=== PATIENT | male | born 1945 | race Caucasian/White ===

== ENCOUNTER → 2021-03-19 09:18 | Outpatient (CLI) | payer MEDICARE, OTHER, SELFPAY ==
--- NOTE | 2021-03-19 09:21 | DI.RAD.S_ITS ---
PROCEDURE: XR LUMBAR SPINE MIN 4V INDICATIONS: lumbar radicu TECHNIQUE: 5 views of the lumbar spine were acquired, including bilateral oblique views. COMPARISON: None. FINDINGS: Bones: 5 nonrib-bearing vertebrae are present. There is mild levoscoliosis; otherwise normal bony alignment. No vertebral body compression fractures. No suspicious bony lesions. There is degenerative disc disease in lower thoracic spine and lumbar spine, moderate at T10-T11, T12-L1, L1-L2 and L2-L3, mild at other levels. Moderate facet arthropathy at L4-L5 and L5-S1. Soft tissues: Overlying bowel gas pattern is normal. No suspicious soft tissue calcifications. Large amount of stool in colon. Surgical clips in the right groin. Oblique images: No pars defects. IMPRESSION: 1. Degenerative disc and facet disease in lumbar spine. 2. Mild levoscoliosis. Dictated by: Osmin Avila M.D. on 03/19/2021 at 11:48 Approved by: Osmin Avila M.D. on 03/19/2021 at 11:50
== END ==
PROVIDERS: PCP Family Medicine; Referring Provider Physical Medicine & Rehabilitation; Visit Provider Physical Medicine & Rehabilitation
DX: M51.15 Intervertebral disc disorders with radiculopathy, thoracolumbar region (principal); M51.16 Intervertebral disc disorders with radiculopathy, lumbar region; M47.26 Other spondylosis with radiculopathy, lumbar region; M47.27 Other spondylosis with radiculopathy, lumbosacral region; M41.86 Other forms of scoliosis, lumbar region
CPT/HCPCS: 72110

== ENCOUNTER → 2021-04-09 06:52 | Outpatient (CLI) | payer MEDICARE, OTHER, SELFPAY ==
--- NOTE | 2021-04-09 06:55 | DI.MRI.S_ITS ---
PROCEDURE: MR LUMBAR SPINE WO CON INDICATIONS: lumbar radiculopathy TECHNIQUE: Noncontrast sagittal T1 spin echo and T2 fast echo, sagittal STIR, axial T1 and T2 fast spin echo through the lumbar spine. In cases with scoliosis, additional coronal T2 fast spin echo may be performed. COMPARISON: [facility], CR, XR LUMBAR SPINE MIN 4V, 03/19/2021, 9:27. FINDINGS: Image quality: Excellent. Alignment and Curvature: There is trace L2-L3 and L3-L4 retrolisthesis. Mild convex left curvature of the lumbar spine. Bone Marrow: Reactive endplate changes noted adjacent to the L1-L2, L2-L3, L3-L4, L4-L5 and L5-S1 discs.. No acute vertebral body compression fractures. Spinal Cord: Conus medullaris terminates at the L1 level. Visualized cord demonstrates normal signal and size. Paraspinous Soft Tissues: No paravertebral masses. T12-L1: Loss of disc signal and height. Mild, diffuse disc bulge. Mild narrowing of the central canal. No neural foraminal narrowing. No neural compression. L1-L2: Loss of disc signal and height. Mild, diffuse disc bulge. Mild narrowing of the central canal. Mild bilateral neural foraminal narrowing. No neural compression. L2-L3: Loss of disc signal and height. Moderate, diffuse disc bulge. Mild bilateral facet hypertrophy. Moderate ligamentum flavum hypertrophy. Moderate narrowing of the central canal. Moderate bilateral neural foraminal narrowing. No neural compression. L3-L4: Loss of disc signal and slight loss of disc height. Moderate, diffuse disc bulge. Mild bilateral facet hypertrophy. Mild ligamentum flavum hypertrophy. Mild to moderate narrowing of the central canal. Moderate bilateral neural foraminal narrowing. No neural compression. L4-L5: Loss of disc signal. Moderate, diffuse disc bulge. Mild bilateral facet hypertrophy. Mild to moderate narrowing of the central canal. Moderate bilateral neural foraminal narrowing. No neural compression. L5-S1: Loss of disc signal. Mild, diffuse disc bulge. Mild right and moderate left facet hypertrophy. No central stenosis. Mild right and severe left neural foraminal narrowing with compression of the exiting left L5 nerve root. IMPRESSION: 1. Multilevel degenerative disc disease. 2. Multilevel facet arthropathy. 3. No severe central canal narrowing. 4. Severe left L5-S1 neural foraminal narrowing with compression of the exiting left L5 nerve root. Dictated by: Jenae Castle MD, PhD on 04/09/2021 at 16:28 Approved by: Jenae Castle MD, PhD on 04/09/2021 at 16:46
== END ==
PROVIDERS: PCP Family Medicine; Referring Provider Physical Medicine & Rehabilitation; Visit Provider Physical Medicine & Rehabilitation
DX: M51.16 Intervertebral disc disorders with radiculopathy, lumbar region (principal); M51.17 Intervertebral disc disorders with radiculopathy, lumbosacral region; M47.26 Other spondylosis with radiculopathy, lumbar region; M47.27 Other spondylosis with radiculopathy, lumbosacral region; M48.07 Spinal stenosis, lumbosacral region
CPT/HCPCS: 72148

== ENCOUNTER → 2021-05-04 08:08 | Outpatient (CLI) | payer MEDICARE, OTHER, SELFPAY ==
[2021-05-04 12:45] LABS: COVID19 -Nasal RAPID Negative (Negative)
== END ==
PROVIDERS: PCP Family Medicine; Visit Provider Physical Medicine & Rehabilitation
DX: Z20.822 Contact with and (suspected) exposure to COVID-19 (principal)
CPT/HCPCS: 87635; C9803

== ENCOUNTER 2021-05-05 14:56 | Outpatient (CLI) | payer MEDICARE, OTHER, SELFPAY ==
[2021-05-05] VITALS (8 sets, daily range): BP systolic 130–179; BP diastolic 70–83; PULSE 60–73; RESP 17–22; TEMP 36.8; O2SAT 92–98
--- NOTE | 2021-05-05 14:59 | DI.RAD.S_ITS ---
PROCEDURE: PAIN L/S TRANSFORAMINAL INJECT INDICATIONS: SPONDYLOSIS COMPARISON: None. FINDINGS: Fluoroscopic spot filming was performed to verify placement of spinal needles at the left L5-S1 neural foramen level(s), as labeled on the films. Appropriate location(s) of the needle tip(s) was confirmed by injection of iodinated contrast. IMPRESSION: Access needle at the left L5-S1 neural foramen Dictated by: Jenae Castle MD, PhD on 05/05/2021 at 17:11 Approved by: Jenae Castle MD, PhD on 05/05/2021 at 17:12
[2021-05-05] MEDS: MIDAZOLAM 5 MG/5 ML VIAL IV (15:35)
[2021-05-05] MEDS: fentaNYL 100 MCG/2 ML INJ 50 MCG IV (15:35)
[2021-05-05] MEDS: BUPIVACAINE 0.25% (PF) VIAL 2 ML INJ (15:39)
[2021-05-05] MEDS: BETAMETHASONE 30 MG/5 ML MDV 6 MG INJ (15:39)
[2021-05-05] MEDS: IOPAMIDOL 15 ML VIAL 3 ML INJ (15:39)
[2021-05-05] MEDS: DEXAMETHASONE 10 MG/ML VIAL 20 MG INJ (15:40)
--- NOTE | 2021-05-05 15:53 | P.PCN_ITS ---
Date/Time/Diagnoses Date of procedure: 05/05/21 Time of procedure: 15:53 Pre-procedure diagnosis: 1. FORAMINAL STENOSIS WITH LE SYMPTOMS Post-procedure diagnosis: same Procedure Notes Procedure: 1. FLUOROSCOPICALLY GUIDED CONTRAST CONTROLLED TRANSFORAMINAL EPIDURAL STEROID INJECTION - Left L5/S1 Indications: Alex is referred by Dr. Conklin for treatment of Foraminal Stenosis with Left LE Symptoms Physician: Vicente Keller Total Fluoroscopy time (seconds): 13 Total sedation minutes: 14 Complications: none Procedure in detail & Post-procedure care: FINDINGS Foraminal Nerve Root Compression secondary to disc disease and facet hypertrophy DESCRIPTION OF PROCEDURE Following review of allergy and review of potential side effects and complications, including, but not necessarily limited to, infection, allergic reaction, local tissue breakdown, stroke, temporary or permanent nerve injury, paralysis, and possible , the patient indicated that the patient understood and agreed to proceed. An informed consent document was signed by the patient, witnessed by a nurse, and placed in the patient's chart. Additionally, other treatment options including medications, modalities, and physical therapy were reviewed with the patient. After review of previous anaesthesic history and IV conscious sedation the patient was deemed safe to proceed with today?s procedure with IV conscious sedation as ASA class II designation. Safety time-out was performed to confirm patient ID, procedure to be performed and site of procedure. IV sedation was accomplished with a combination of 2mg of Versed and 50mcg of Fentanyl was administered by the RN after DO order, titrated to patient comfort during the course of the procedure while the patient remained responsive to all verbal commands In the prone position following sterile prep and drape of the lumbar region, the Left L5/S1 posterior neuroforamen was identified fluoroscopically. The skin was anesthetized via a 25-gauge 1.5-inch needle with 1% lidocaine solution. At this point, a 25-gauge 3.5-inch spinal needle was atraumatically introduced and advanced under fluoroscopic guidance through the posterior Left L5/S1 neurofor amen to approximately the anterior aspect of the canal. Depth was confirmed on lateral view. Following negative aspiration, injection of approximately 1.5 cc of Isovue 200 under live fluoroscopy in the AP view confirmed excellent flow along the nerve root, into the epidural space without vascular or intrathecal uptake observed Radiological data, including multiple fluoroscopic views of the lumbosacral spine, reveal a spinal needle at the Left L5/S1 posterior neuroforamen. Subsequent views show flow of contrast material flowing superiorly and inferiorly along the nerve root confirming epidural flow. Subsequently, a test dose of 1.5 cc of 1% lidocaine solution was administered and patient was observed for two minutes for signs or symptoms of complications, including abdominal pain, shortness of breath, bilateral upper or lower extremity weakness, nausea and vomiting, prior to steroid injection. At this point, a total of 3cc or 20mg of dexamethasone and 6mg of betamethasone was injected without incident. The procedure tolerated the procedure well without signs or symptoms of complications prior to transfer to the recovery area continued monitoring without incident. The patient was then transferred to the recovery area where they were observed for an appropriate time after the injection. The patient reported a VAS score of 7 prior to the procedure and a post-procedure VAS of 0. POST OP INSTRUCTIONS The patient was provided a Pain Log to continue to record their response to the target-specific procedure prior to follow-up visit with their referring physician. Additionally, specific post-injection care instructions and a contact number to our office were provided if concerns arise regarding possible complications associated with the procedure are suspected.
== END 2021-05-05 16:14 | disposition home or self-care (01) ==
LOC: RAD 14:59
PROVIDERS: PCP Family Medicine; Referring Provider Physical Medicine & Rehabilitation; Visit Provider Physical Medicine & Rehabilitation
DX: M48.07 Spinal stenosis, lumbosacral region (principal); M51.17 Intervertebral disc disorders with radiculopathy, lumbosacral region
CPT/HCPCS: 64483; 99152; J0702; J1100; J2250; J3010

== ENCOUNTER → 2021-06-08 08:30 | Outpatient (CLI) | payer MEDICARE, OTHER, SELFPAY ==
[2021-06-08 12:27] LABS: COVID19 -Nasal RAPID Negative (Negative)
== END ==
PROVIDERS: PCP Family Medicine; Referring Provider Physical Medicine & Rehabilitation; Visit Provider Physical Medicine & Rehabilitation
DX: Z20.822 Contact with and (suspected) exposure to COVID-19 (principal)
CPT/HCPCS: 87635; C9803

== ENCOUNTER 2021-06-09 13:04 | Outpatient (CLI) | payer MEDICARE, OTHER, SELFPAY ==
[2021-06-09] VITALS (9 sets, daily range): BP systolic 151–174; BP diastolic 73–85; PULSE 64–69; RESP 17–23; TEMP 36.8; O2SAT 94–99
--- NOTE | 2021-06-09 13:07 | DI.RAD.S_ITS ---
PROCEDURE: PAIN L/S TRANSFORAMINAL INJECT INDICATIONS: SPONDYLOSIS COMPARISON: [facility], , PAIN L/S TRANSFORAMINAL INJECT, 05/05/2021, 15:40. FINDINGS: Fluoroscopic spot filming was performed to verify placement of spinal needles at the left L3-L4 neural foramen level(s), as labeled on the films. Appropriate location(s) of the needle tip(s) was confirmed by injection of iodinated contrast. IMPRESSION: Access needle at the left L3-L4 neural foramen. Dictated by: Jenae Castle MD, PhD on 06/09/2021 at 15:47 Approved by: Jenae Castle MD, PhD on 06/09/2021 at 15:48
[2021-06-09] MEDS: MIDAZOLAM 5 MG/5 ML VIAL IV (14:24)
[2021-06-09] MEDS: IOPAMIDOL 15 ML VIAL 3 ML INJ (14:29)
[2021-06-09] MEDS: BETAMETHASONE 30 MG/5 ML MDV 6 MG INJ (14:29)
[2021-06-09] MEDS: DEXAMETHASONE 10 MG/ML VIAL 20 MG INJ (14:30)
--- NOTE | 2021-06-09 14:39 | PM.PROC.IR.1 ---
Date/Time/Diagnoses Date of procedure: 06/09/21 Time of procedure: 14:39 Pre-procedure diagnosis: 1. FORAMINAL STENOSIS WITH LE SYMPTOMS Post-procedure diagnosis: same Procedure Notes Procedure: 1. FLUOROSCOPICALLY GUIDED CONTRAST CONTROLLED TRANSFORAMINAL EPIDURAL STEROID INJECTION - LEFT L3/4 TFESI Indications: Alex is referred by Dr. Conklin for treatment of Foraminal Stenosis with left LE Symptoms Physician: Vicente Keller Total Fluoroscopy time (seconds): 7 Total sedation minutes: 12 Complications: none Procedure in detail & Post-procedure care: FINDINGS Foraminal Nerve Root Compression secondary to disc disease and facet hypertrophy DESCRIPTION OF PROCEDURE Following review of allergy and review of potential side effects and complications, including, but not necessarily limited to, infection, allergic reaction, local tissue breakdown, stroke, temporary or permanent nerve injury, paralysis, and possible , the patient indicated that the patient understood and agreed to proceed. An informed consent document was signed by the patient, witnessed by a nurse, and placed in the patient's chart. Additionally, other treatment options including medications, modalities, and physical therapy were reviewed with the patient. After review of previous anaesthesic history and IV conscious sedation the patient was deemed safe to proceed with today?s procedure with IV conscious sedation as ASA class II designation. Safety time-out was performed to confirm patient ID, procedure to be performed and site of procedure. IV sedation was accomplished with a combination of 2mg of Versed was administered by the RN after DO order, titrated to patient comfort during the course of the procedure while the patient remained responsive to all verbal commands In the prone position following sterile prep and drape of the lumbar region, the left L3/4 posterior neuroforamen was identified fluoroscopically. The skin was anesthetized via a 25-gauge 1.5-inch needle with 1% lidocaine solution. At this point, a 25-gauge 3.5-inch spinal needle was atraumatically introduced and advanced under fluoroscopic guidance through the posterior left L3/4 neuroforamen to approximately the anterior aspect of the canal. Depth was confirmed on lateral view. Following negative aspiration, injection of approximately 1.5 cc of Isovue 200 under live fluoroscopy in the AP view confirmed excellent flow along the nerve root, into the epidural space without vascular or intrathecal uptake observed Radiological data, including multiple fluoroscopic views of the lumbosacral spine, reveal a spinal needle at the left L3/4 posterior neuroforamen. Subsequent views show flow of contrast material flowing superiorly and inferiorly along the nerve root confirming epidural flow. Subsequently, a test dose of 1.5cc of 1% lidocaine solution was administered and patient was observed for two minutes for signs or symptoms of complications, including abdominal pain, shortness of breath, bilateral upper or lower extremity weakness, nausea and vomiting, prior to steroid injection. At this point, a total of 3cc or 20mg of dexamethasone and 6mg betamethasone was injected without incident. The patient tolerated the procedure well without signs or symptoms of complications prior to transfer to the recovery area continued monitoring without incident. The patient was then transferred to the recovery area where they were observed for an appropriate time after the injection. The patient reported a VAS score of 7 prior to the procedure and a post-procedure VAS of 0. POST OP INSTRUCTIONS The patient was provided a Pain Log to continue to record their response to the target-specific procedure prior to follow-up visit with their referring physician. Additionally, specific post-injection care instructions and a contact number to our office were provided if concerns arise regarding possible complications associated with the procedure are suspected.
== END 2021-06-09 15:02 | disposition home or self-care (01) ==
LOC: RAD 13:06
PROVIDERS: PCP Family Medicine; Referring Provider Physical Medicine & Rehabilitation; Visit Provider Physical Medicine & Rehabilitation
DX: M48.061 Spinal stenosis, lumbar region without neurogenic claudication (principal); M51.16 Intervertebral disc disorders with radiculopathy, lumbar region
CPT/HCPCS: 64483; 99152; J0702; J1100; J2250; J3010

== ENCOUNTER → 2021-12-23 13:59 | Outpatient (CLI) | payer MEDICARE, OTHER, SELFPAY ==
--- NOTE | 2021-12-23 14:02 | DI.RAD.S_ITS ---
PROCEDURE: XR SHOULDER RT MIN 2V INDICATIONS: shoulder djd TECHNIQUE: 3 views of the shoulder were acquired. COMPARISON: [facility], CR, XR SHOULDER LT MIN 2V, 12/23/2021, 13:54. FINDINGS: Bones: No fractures or dislocations. There is moderate acromioclavicular joint degeneration including inferior osteophytosis. Mild glenohumeral joint degeneration also present. No suspicious bony lesions. Visualized ribs appear intact. Soft tissues: No suspicious soft tissue calcifications. IMPRESSION: 1. Moderate acromioclavicular and mild glenohumeral joint degeneration. Dictated by: Yehuda Brasher M.D. on 12/23/2021 at 15:37 Approved by: Yehuda Brasher M.D. on 12/23/2021 at 15:38
--- NOTE | 2021-12-23 14:02 | DI.RAD.S_ITS ---
PROCEDURE: XR SHOULDER LT MIN 2V INDICATIONS: shoulder djd TECHNIQUE: 3 views of the shoulder were acquired. COMPARISON: None. FINDINGS: Bones: No fractures or dislocations. There is mild acromioclavicular and glenohumeral joint degeneration. No suspicious bony lesions. Visualized ribs appear intact. Soft tissues: No suspicious soft tissue calcifications. IMPRESSION: 1. Mild acromioclavicular and glenohumeral joint degeneration. Dictated by: Yehuda Brasher M.D. on 12/23/2021 at 15:36 Approved by: Yehuda Brasher M.D. on 12/23/2021 at 15:37
== END ==
PROVIDERS: PCP Family Medicine; Referring Provider Physical Medicine & Rehabilitation; Visit Provider Physical Medicine & Rehabilitation
DX: M75.40 Impingement syndrome of unspecified shoulder (principal); M19.012 Primary osteoarthritis, left shoulder; M19.011 Primary osteoarthritis, right shoulder; M47.816 Spondylosis without myelopathy or radiculopathy, lumbar region; M75.41 Impingement syndrome of right shoulder; M41.26 Other idiopathic scoliosis, lumbar region; M54.16 Radiculopathy, lumbar region; Z68.24 Body mass index [BMI] 24.0-24.9, adult
CPT/HCPCS: 73030; 99214

== ENCOUNTER → 2022-04-05 09:17 | Outpatient (CLI) | payer MEDICARE, OTHER, SELFPAY ==
[2022-04-05 12:40] LABS: COVID19 -Nasal RAPID Negative (Negative)
== END ==
PROVIDERS: PCP Family Medicine; Visit Provider Surgery
DX: Z20.822 Contact with and (suspected) exposure to COVID-19 (principal); Z01.812 Encounter for preprocedural laboratory examination
CPT/HCPCS: 87635; C9803

== ENCOUNTER 2022-04-06 08:28 | Day surgery (SDC) | payer MEDICARE, OTHER, SELFPAY ==
[2022-01-21 14:25] VITALS: BMI 25.0
[2022-04-06] VITALS (11 sets, daily range): BP systolic 112–157; BP diastolic 40–82; PULSE 62–78; RESP 11–16; TEMP 36.1–36.4; O2SAT 86–98; BMI 25.0
[2022-04-06] MEDS: LACTATED RINGERS 1,000 ML 84 ML IV ×2 (09:21→11:27)
--- NOTE | 2022-04-06 09:31 | PM.HP.1 ---
History of Present Illness History of Present Illness Date Patient Seen: 04/06/22 Time Patient Seen: 09:32 Chief complaint: LAP RIH REPAIR W/MESH Narrative: Alex is here for his recurrent right inguinal hernia repair. See the office note from December for details. Patient History Medical History Depression Facet arthropathy, lumbar Hernia Lumbar radiculopathy Sciatic nerve disease Scoliosis Shoulder impingement syndrome Trigger finger Surgical History History of carpal tunnel surgery History of surgery on arm History of testicular surgery Family & Social History Family History Brother Diabetes mellitus Heart disease Social History: household members spouse lives independently Yes Tobacco & Substance use: Smoking Status Former smoker alcohol intake current alcohol intake frequency a few times a month Substance Use Type does not use Meds Home Medications and Allergies Home Medications Medication Instructions Recorded Confirmed Type atorvastatin 40 mg tablet 40 mg PO DAILY 04/06/21 04/06/22 History escitalopram oxalate 10 mg tablet 10 mg PO DAILY 04/06/21 04/06/22 History (Lexapro) lamotrigine 100 mg tablet 100 mg PO DAILY 04/06/21 04/06/22 History tamsulosin 0.4 mg capsule 0.4 mg PO BEDTIME 04/06/21 04/06/22 History omeprazole magnesium 20 mg 20 mg PO DAILY 12/09/21 04/06/22 History tablet,delayed release (Prilosec OTC) finasteride 5 mg tablet 5 mg PO DAILY 12/23/21 04/06/22 History Allergies Allergy/AdvReac Type Severity Reaction Status Date / Time No Known Drug Allergies Allergy Verified 04/06/22 08:36 Exam Vital Signs (past 8 hours): - 04/06/22 08:50 Temperature 97 F L Pulse Rate 62 Respiratory Rate 16 Blood Pressure 157/82 H Pulse Oximetry 98 Oxygen Delivery Method Room Air Oxygen Delivery Method Room Air Narrative Exam Narrative: Reducible right inguinal hernia Reducible small umbilical hernia Assessment & Plan Assessment and plan (1) Recurrent right inguinal hernia: Status: Acute Plan 68-year-old man with a recurrent right inguinal hernia. We will proceed with a laparoscopic right inguinal hernia repair with mesh. He also has a umbilical hernia that we will close the conclusion of the case. Time Spent With Patient Critical Care time: I spent a total of [] minutes of critical care time on this patient's care today; this time is exclusive of procedural time.
[2022-04-06] MEDS: CEFAZOLIN 2 GM/20 ML SYRINGE IV (10:08)
--- NOTE | 2022-04-06 10:20 | SUR.OPER ---
Supine on padded OR bed, head on pillow, on pink pad positioner, arms padded and tucked at sides, legs uncrossed, safety belt at thigh, tape over blanket over lower legs . Gel pad under bilateral heels. Patient voided in pre-op bathroom prior to entering OR around 0955. patients glasses placed in black glass case with patient ID label and bilateral hearing aids placed in patient ID labeled cup and both placed in patients belongings bag.
[2022-04-06] MEDS: LIDOCAINE 1% W/EPI 20 ML INJ (10:38)
[2022-04-06] MEDS: BUPIVACAINE 0.5% (PF) VIAL 20 ML INJ (10:39)
--- NOTE | 2022-04-06 11:42 | PM.OP.1 ---
Operative Date/Time/Diagnoses Date of procedure: 04/06/22 Time of procedure: 11:43 Pre-op diagnosis: Recurrent right inguinal hernia Post-op diagnosis: same Procedure & Clinicians Procedure: Laparoscopic right inguinal hernia repair with mesh Same procedure as scheduled: Yes Surgeon: Alok Kulkarni Operative Notes Findings: Indirect defect Procedure in detail: The patient was given preoperative antibiotics. The patient was brought to the operating room, placed on the table in the supine position with the arms tucked and general anesthesia was induced. The abdomen was prepped and draped in the usual fashion. A time-out was performed. A 1 cm curvilinear infraumbilical incision was created and dissection was carried down to the base of the umbilical stalk. The hernia sac was dissected from the umbilical skin and dissected down to the fascial ring. The fascial defect was about 1.5 cm. The peritoneal sac was opened sharply with Metzenbaum scissors. The Ananda port was placed and the abdomen was insufflated to 15 mmHg. The camera was inserted, there was no evidence of any injury from the entry. There was a right indirect inguinal hernia. 5 mm ports were placed under direct vision in the mid left and mid right abdomen. The patient was positioned in steep Trendelenburg. We created right peritoneal flap. The peritoneum was dissected off of the cord structures. A a large right Bard mesh was brought in and placed over the defect with the medial edge against Pelon's ligament. We then closed the peritoneal flap with a running 3-0 barbed suture. We took one last look around the abdomen and saw no other abnormalities. The suture was removed and accounted for. The 5 mm ports were removed under direct vision. The abdomen was desufflated. The Ananda port was removed. Additional local was injected into the fascia and the infraumbilical fascial incision was closed with 2 interrupted 0 Vicryl sutures. The skin incisions were closed with 4 Monocryl, Steri-Strips and Band-Aids. Post-operative Condition: stable Disposition: PACU
[2022-04-06] MEDS: OXYCODONE/ACETAMINOPHEN 5/325 TABLET 1 TAB PO (12:01)
--- NOTE | 2022-04-06 12:52 | SUR.PHASEII ---
Pt transferred to [facility] with SBAR report at bedside. . Pt on room air trail, placed on continuous pulse ox in OPD. Denies SOB or difficulty breathing though reports fatigue at home.
== END 2022-04-06 13:10 | disposition home or self-care (01) ==
PROVIDERS: PCP Family Medicine; Referring Provider Surgery; Visit Provider Surgery
PROC: 0YQ54ZZ Repair Right Inguinal Region, Percutaneous Endoscopic Approach (ICD-10-PCS; CPT 49650; principal; 2022-04-06 09:45)
DX: K40.91 Unilateral inguinal hernia, without obstruction or gangrene, recurrent (principal); G47.33 Obstructive sleep apnea (adult) (pediatric); E78.5 Hyperlipidemia, unspecified; F32.A Depression, unspecified
CPT/HCPCS: 49650; J0690; J1100; J1885; J2250; J2405; J2704; J3010

== ENCOUNTER → 2022-06-15 10:50 | Outpatient (CLI) | payer MEDICARE, OTHER, SELFPAY ==
[2022-06-15 12:26] LABS: COVID19 -Nasal RAPID Negative (Negative)
== END ==
PROVIDERS: PCP Family Medicine; Visit Provider Physical Medicine & Rehabilitation
DX: Z20.822 Contact with and (suspected) exposure to COVID-19 (principal)
CPT/HCPCS: 87635; C9803

== ENCOUNTER 2022-06-17 07:38 | Outpatient (CLI) | payer MEDICARE, OTHER, SELFPAY ==
[2022-06-17] VITALS (9 sets, daily range): BP systolic 140–188; BP diastolic 71–110; PULSE 58–67; RESP 12–23; TEMP 36.3; O2SAT 95–99
--- NOTE | 2022-06-17 07:40 | DI.RAD.S_ITS ---
PROCEDURE: PAIN L/S FACET INJ/BLK 1ST ANDREW COMPARISON: None. INDICATIONS: SPONDYLOSIS FINDINGS: Fluoroscopic images demonstrating needle placement overlying left L4-5 and L5-S1 with contrast injection. No visualized osseous fracture. IMPRESSION: Needle placement as above. Dictated by: Lula Mccollum M.D. on 06/17/2022 at 16:13 Approved by: Lula Mccollum M.D. on 06/17/2022 at 16:13
[2022-06-17] MEDS: MIDAZOLAM 2 MG/2 ML VIAL IV (09:23)
[2022-06-17] MEDS: IOPAMIDOL 15 ML VIAL 3 ML INJ (09:27)
[2022-06-17] MEDS: BETAMETHASONE 30 MG/5 ML MDV 12 MG INJ (09:27)
[2022-06-17] MEDS: BUPIVACAINE 0.5% (PF) VIAL 5 ML INJ (09:27)
[2022-06-17] MEDS: LIDOCAINE 1% 20 ML INJ (09:28)
--- NOTE | 2022-06-17 09:41 | P.PCN_ITS ---
Date/Time/Diagnoses Date of procedure: 06/17/22 Time of procedure: 09:41 Pre-procedure diagnosis: 1. FACET ARTHROPATHY 2. AXIAL LBP 3. MULTILEVEL DDD Post-procedure diagnosis: same Procedure Notes Procedure: 1. FLUOROSCOPICALLY GUIDED CONTRAST CONTROLLED FACET JOINT INJECTIONS BILATERAL L4/5, L5/S1 Indications: Alex is referred by Dr. Conklin for treatment of Axial LBP Physician: Vicente Keller Total Fluoroscopy time (seconds): 10 Total sedation minutes: 11 Complications: none Procedure in detail & Post-procedure care: FINDINGS Multilevel Facet Arthropathy with Clinically significant axial LBP DESCRIPTION OF PROCEDURE Fluoroscopically guided, contrast-controlled bilateral L4/5, L5/S1 facet joint injections. Following review of allergy and review of potential side effects and complications, including, but not necessarily limited to, infection, allergic reaction, local tissue breakdown, stroke, temporary or permanent nerve injury, paralysis, and possible , the patient indicated that the patient understood and agreed to proceed. An informed consent document was signed by the patient, witnessed by a nurse, and placed in the patient's chart. Additionally, other treatment options including medications, modalities, and physical therapy were reviewed with the patient. After review of previous anaesthesic history and IV conscious sedation the patient was deemed safe to proceed with today?s procedure with IV conscious sedation as ASA class II designation. Safety time-out was performed to confirm patient ID, procedure to be performed and site of procedure. IV sedation was accomplished with a combination of 2mg of Versed was administered by the RN after DO order, titrated to patient comfort during the course of the procedure while the patient remained responsive to all verbal commands In the prone position, following sterile prep and drape of the lumbar region, the posterior aspect of the L4/5, L5/S1 facet joints were identified fluoroscopically. The skin was anesthetized via a 25-gauge 1.5inch needle with 1% lidocaine solution into the corresponding facet joints. At this point, a 22- gauge 3.5-inch spinal needle was atraumatically introduced and advanced under fluoroscopic guidance into the corresponding facet joints. Following negative aspiration, injections of approximately 0.2cc of Isovue 200 confirmed interarticular placement without vascular uptake. The identical procedure was then performed at the L4/5, L5/S1 facet joints on the left. Radiological data, including multiple fluoroscopic views of the lumbosacral spine, reveal a spinal needle at the L4/5, L5/S1 facet joints bilaterally. Subsequent views show flow of contrast material both superiorly and inferiorly within the joint space without vascular or intrathecal uptake. At this point, a total of 0.5cc including a mixture of 0.25cc Marcaine and 0.25cc betamethasone was injected without complication into each of the corresponding facet joints. The patient tolerated the procedure well without signs or symptoms of complications prior to transfer to the recovery area continued monitoring without incident. The patient was then transferred to the recovery area where they were observed for an appropriate period of time after the injection. The patient reported a VAS score of 7 prior to the procedure and a post- procedure VAS of 0. POST OP INSTRUCTIONS The patient was provided a Pain Log to continue to record their response to the target-specific procedure prior to follow-up visit with their referring physician. Additionally, specific post-injection care instructions and a contact number to our office were provided if concerns arise regarding possible complications associated with the procedure are suspected.
== END 2022-06-17 10:05 | disposition home or self-care (01) ==
LOC: RAD 07:39
PROVIDERS: PCP Family Medicine; Referring Provider Physical Medicine & Rehabilitation; Visit Provider Physical Medicine & Rehabilitation
DX: M47.816 Spondylosis without myelopathy or radiculopathy, lumbar region (principal); M41.9 Scoliosis, unspecified
CPT/HCPCS: 64493; 64494; 99152; J0702; J2250

== ENCOUNTER 2022-09-30 07:58 | Outpatient (CLI) | payer MEDICARE, OTHER, SELFPAY ==
[2022-09-30] VITALS (9 sets, daily range): BP systolic 120–183; BP diastolic 68–89; PULSE 61–69; RESP 12–21; TEMP 36.6; O2SAT 92–98
--- NOTE | 2022-09-30 07:59 | DI.RAD.S_ITS ---
PROCEDURE: PAIN L/S FACET INJ/BLK 1ST ANDREW COMPARISON: MR, MR LUMBAR SPINE WO CON, 04/09/2021, 7:29. CR, XR LUMBAR SPINE MIN 4V, 03/19/2021, 9:27. INDICATIONS: SPONDYLOSIS FINDINGS: 6 intraoperative fluoroscopy images demonstrate needle placement at L4, L5 and S1 bilaterally. IMPRESSION: Fluoroscopy for pain management. Dictated by: Osmin Avila M.D. on 09/30/2022 at 10:30 Approved by: Osmin Avila M.D. on 09/30/2022 at 10:31
[2022-09-30] MEDS: LIDOCAINE 1% (PF) 5 ML INJ (09:42)
[2022-09-30] MEDS: IOPAMIDOL 15 ML VIAL 3 ML INJ (09:42)
[2022-09-30] MEDS: BUPIVACAINE 0.5% (PF) VIAL 5 ML INJ (09:43)
[2022-09-30] MEDS: MIDAZOLAM 2 MG/2 ML VIAL 3 MG IV (09:44)
--- NOTE | 2022-09-30 09:52 | P.PCN_ITS ---
Date/Time/Diagnoses Date of procedure: 09/30/22 Time of procedure: 09:52 Pre-procedure diagnosis: 1. FACET ARTHROPATHY Post-procedure diagnosis: same Procedure Notes Procedure: 1. BILATERAL- L4, L5 and S1 DIAGNOSTIC MB BLOCKS with LA Anesthetic Indications: Alex is referred by Dr. Conklin for treatment of Bilateral Axial LBP. Physician: Vicente Keller Total Fluoroscopy time (seconds): 10 Total sedation minutes: 14 Complications: none Procedure in detail & Post-procedure care: DESCRIPTION OF PROCEDURE Fluoroscopically guided, contrast-controlled bilateral L4, L5 and S1 medial branch blocks with 0.5cc of 0.5% Marcaine. Following review of allergy and review of potential side effects and complications, including, but not necessarily limited to, infection, allergic reaction, local tissue breakdown, nerve injury, paralysis, stroke and possible , the patient indicated that the patient understood and agreed to proceed. An informed consent document was signed by the patient, witnessed by a nurse, and placed in the patient's chart. After review of previous anaesthesic history and IV conscious sedation the patient was deemed safe to proceed with today's procedure with IV conscious sedation as ASA class II designation. Safety time-out was performed to confirm patient ID, procedure to be performed and site of procedure. IV sedation was accomplished with a combination of 3mg of Versed was administered by the RN after DO order, titrated to patient comfort during the course of the procedure while the patient remained responsive to all verbal commands In the prone position, following sterile prep and drape of the lumbar region, the right L4, L5 and S1 anatomical location of the medial branch of the dorsal ramus was identified fluoroscopically. Subsequently an anesthetic skin wheal using 1% lidocaine solution was initiated at each of the anatomical spots. Subsequently then a 22-gauge 3.5-inch spinal needle was atraumatically introduced and advanced under fluoroscopic guidance at each of the corresponding sites at the right L4, L5 and S1 MB. After negative aspiration, 0.2cc of Isovue 200 was injected, confirming placement without vascular or intrathecal uptake. Subsequently then 0.5cc of 0.5% Marcaine solution was injected at each of the corresponding sites at the right L4, L5 and S1 medial branch locations. The identical procedure was replicated on the left. The patient tolerated the procedure well without signs or symptoms of complications prior to transfer to the recovery area continued monitoring without incident. Post-procedure, the patient was monitored initiating provocative activities to measure the amount of relief from block of the facetogenic pain. The patient reported a VAS of 7 prior to the procedure and a post-procedure VAS of 1. It has been a pleasure to assist in the diagnostic and therapeutic care of your patient. POST OP INSTRUCTIONS The patient was provided with a Pain Log to complete over the next several hours and subsequent days prior to the patient's follow up with the ordering physician. If the patient has cut out press operator relief to the solution applied, then they may be a candidate for medial branch rhizotomy. The patient is aware, was provided, once again, with a Pain Log and will follow up with the referring physician for review and clinical correlation
== END 2022-09-30 10:33 | disposition home or self-care (01) ==
PROVIDERS: PCP Family Medicine; Referring Provider Physical Medicine & Rehabilitation; Visit Provider Physical Medicine & Rehabilitation
DX: M47.816 Spondylosis without myelopathy or radiculopathy, lumbar region (principal); M47.817 Spondylosis without myelopathy or radiculopathy, lumbosacral region
CPT/HCPCS: 64493; 64494; 99152; J2250

== ENCOUNTER 2023-01-25 10:20 | Outpatient (CLI) | payer MEDICARE, SELFPAY ==
[2023-01-25] VITALS (12 sets, daily range): BP systolic 128–169; BP diastolic 61–82; PULSE 58–66; RESP 16–21; TEMP 36.6; O2SAT 92–98
--- NOTE | 2023-01-25 10:21 | DI.RAD.S_ITS ---
PROCEDURE: PAIN L/S MED/LAT N RFA BILAT INDICATIONS: SPONDYLOSIS COMPARISON: [facility], , PAIN L/S FACET INJ/BLK 1ST ANDREW, 09/30/2022, 10:34. FINDINGS: Fluoroscopic spot filming was performed to verify placement of spinal needles on both sides at the L4, L5, and S1 levels, as labeled on the films. IMPRESSION: Images during rhizotomy within normal limits. Dictated by: Semaj Taylor M.D. on 01/25/2023 at 12:19 Approved by: Semaj Taylor M.D. on 01/25/2023 at 12:19
[2023-01-25] MEDS: BUPIVACAINE 0.5% (PF) 30 ML VIAL 5 ML INJ (11:57)
[2023-01-25] MEDS: LIDOCAINE 1% (PF) 5 ML INJ (11:57)
[2023-01-25] MEDS: MIDAZOLAM 2 MG/2 ML VIAL 3 MG IV (12:13)
--- NOTE | 2023-01-25 12:55 | P.PCN_ITS ---
Date/Time/Diagnoses Date of procedure: 01/25/23 Time of procedure: 12:55 Pre-procedure diagnosis: 1. RECALCITRANT FACET ARTHROPATHY Post-procedure diagnosis: same Procedure Notes Procedure: 1. BILATERAL L4 AND L5 MEDIAL BRANCH RADIOFREQUENCY NEUROTOMY AND S1 DORSAL RAMUS BRANCH RADIOFREQUENCY NEUROTOMY Indications: Alex is referred by Dr. Conklin for treatment of facet arthropathy. Physician: Vicente Keller Total Fluoroscopy time (seconds): 41 Total sedation minutes: 26 Complications: none Procedure in detail & Post-procedure care: DESCRIPTION OF PROCEDURE Bilateral L4 and L5 medial branch radiofrequency neurotomy and bilateral S1 dorsal ramus radiofrequency neurotomy under fluoroscopy with conscious sedation. The patient is well known to this clinic having undergone previous facet injections with good but temporary relief. The patient has experienced appropriate, concordant relief with previous facet and median branch blocks but the patient's pain has been recalcitrant to further conservative measures. Therefore, based upon the patient's relief and persistent symptoms, the patient is considered an appropriate candidate for facet rhizotomy. All of the patient's questions regarding the risks versus benefits of the procedure, including, but not limited to, bleeding, infection, temporary as well as lasting nerve injury, paralysis, stroke, and , as well treatment alternatives were answered to satisfaction. After obtaining informed consent, denial of pertinent drug allergies, as well as being made aware of the potential risks of bleeding, infection, spinal cord trauma, paralysis, temporary and permanent nerve damage, seizure, stroke, and possible , the patient was brought to the fluoroscopy suite and positioned prone on the fluoroscopy table. The lumbar region was prepped with Betadine and covered with a fenestrated drape in the usual sterile fashion. Appropriate monitors applied including pulse oximeter, pulse, and blood pressure for regular monitoring throughout the procedure. After review of previous anaesthesic history and IV conscious sedation the patient was deemed safe to proceed with today's procedure with IV conscious sedation as ASA class II designation. Safety time-out was performed to confirm patient ID, procedure to be performed and site of procedure. IV sedation was accomplished with a combination of 3mg of Versed administered by the RN after DO order, titrated to patient comfort during the course of the procedure while the patient remained responsive to all verbal commands. After local infiltration using 1% lidocaine, under fluoroscopic guidance, a 10- cm RF insulated needle with a 10-mm active tip was positioned parallel to the junction of the right sacral ala and the superior articulating process where the S1 dorsal ramus resides. Needle placement was confirmed with motor stimulation of .5v on the right which produced local stimulation without radicular component. The stimulation was then increased to 2v with, once again, only local multifidus stimulation without radicular component. The needle was then removed and the identical procedure was performed along the length of the right L5 medial branch with motor stimulation at .7v on the right. The identical procedure was once again performed along the length of the right L4 medial branch with motor stimulation of .5v on the right. The medial branches were then anesthetised with 0.5% Marcaine. This was then followed by two discreet lesions performed at 80 degrees Celsius for 90 seconds each. The identical procedure was repeated on the left. The patient tolerated the procedure well without signs or symptoms of complications prior to transfer to the recovery area continued monitoring without incident. The patient was then transferred to the recovery area where they were observed for an appropriate period of time after the injection. The patient reported a VAS score of 9 prior to the procedure and a post-procedure VAS of 0. POST OP INSTRUCTIONS The patient was provided a Pain Log to continue to record the patient's response to the target-specific procedure prior to the patient's follow-up visit with the referring physician. Additionally, specific post-injection care instructions and a contact number to our office were provided if concerns arise regarding possible complications associated with the procedure are suspected.
== END 2023-01-25 12:53 | disposition home or self-care (01) ==
LOC: RAD 10:21
PROVIDERS: PCP Family Medicine; Referring Provider Physical Medicine & Rehabilitation; Visit Provider Physical Medicine & Rehabilitation
DX: M47.816 Spondylosis without myelopathy or radiculopathy, lumbar region (principal); M47.817 Spondylosis without myelopathy or radiculopathy, lumbosacral region
CPT/HCPCS: 64635; 64636; 99152; 99153; J2250

== ENCOUNTER → 2023-07-13 07:29 | Outpatient (CLI) | payer MEDICARE, SELFPAY ==
--- NOTE | 2023-07-13 07:30 | DI.RAD.S_ITS ---
PROCEDURE: XR LUMBAR SPINE MIN 4V INDICATIONS: BACK PAIN TECHNIQUE: 5 views of the lumbar spine were acquired, including bilateral oblique views. COMPARISON: [facility], , XR LUMBAR SPINE MIN 4V, 03/19/2021, 9:27. FINDINGS: Bones: 5 nonrib-bearing vertebrae are present. There is mild levoconvex curvature of the lumbar spine. 1-2 mm grade 1 retrolisthesis at L1-2 and L2-3. No vertebral body compression fractures. No suspicious bony lesions. Multilevel disc space narrowing degenerative endplate changes and multilevel facet hypertrophy are present. Degenerative changes are seen in the hips. Soft tissues: Overlying bowel gas pattern is normal. Mild aortic atherosclerotic calcifications. Surgical clips are seen projecting over the right inguinal region. Oblique images: No pars defects. IMPRESSION: 1. No acute osseous abnormality. If the symptoms persist, consider cross sectional imaging such as MRI or CT for further assessment. 2. Moderate to severe multilevel spondylosis. Levoconvex curvature. Approved by: Cody Metzger M.D. on 07/13/2023 at 8:32
== END ==
PROVIDERS: PCP Family Medicine; Referring Provider Physical Medicine & Rehabilitation; Visit Provider Physical Medicine & Rehabilitation
DX: M47.816 Spondylosis without myelopathy or radiculopathy, lumbar region (principal); M54.16 Radiculopathy, lumbar region; M41.9 Scoliosis, unspecified; M43.8X6 Other specified deforming dorsopathies, lumbar region; Z68.24 Body mass index [BMI] 24.0-24.9, adult; M75.41 Impingement syndrome of right shoulder; M41.26 Other idiopathic scoliosis, lumbar region
CPT/HCPCS: 20611; 72110; 99214; J0702

== ENCOUNTER 2023-07-26 13:13 | Outpatient (CLI) | payer MEDICARE, SELFPAY ==
[2023-07-26] VITALS (9 sets, daily range): BP systolic 126–199; BP diastolic 71–96; PULSE 59–70; RESP 16–22; O2SAT 92–98
--- NOTE | 2023-07-26 13:18 | DI.RAD.S_ITS ---
PROCEDURE: PAIN L INTERLAMINAR/CAUDAL INJ INDICATIONS: SPONDYLOSIS COMPARISON: None. FINDINGS: Fluoroscopic spot filming was performed to verify placement of spinal needles at the L3-4 level(s), as labeled on the films. Appropriate location(s) of the needle tip(s) was confirmed by injection of iodinated contrast. IMPRESSION: Fluoroscopic guidance utilized for an interlaminal injection. Dictated by: Rogelio Allen M.D. on 07/26/2023 at 16:12 Approved by: Rogelio Allen M.D. on 07/26/2023 at 16:13
[2023-07-26] MEDS: MIDAZOLAM 2 MG/2 ML VIAL IV (14:19)
[2023-07-26] MEDS: DEXAMETHASONE 10 MG/ML VIAL INJ (14:25)
[2023-07-26] MEDS: iopamidoL 15 ML VIAL 3 ML INJ (14:25)
[2023-07-26] MEDS: BETAMETHASONE 30 MG/5 ML MDV 6 MG INJ (14:25)
[2023-07-26] MEDS: BUPIVACAINE 0.25% (PF) VIAL 2 ML INJ (14:25)
--- NOTE | 2023-07-26 14:33 | P.PCN_ITS ---
Date/Time/Diagnoses Date of procedure: 07/26/23 Time of procedure: 14:33 Pre-procedure diagnosis: 1. HNP WITH RADICULAR FEATURES, 2. MULTILEVEL CENTRAL STENOSIS, Post-procedure diagnosis: same Procedure Notes Procedure: 1. FLUOROSCOPICALLY GUIDED CONTRAST CONTROLLED INTERLAMINAR EPIDURAL STEROID INJECTION - L3/4 Indications: Alex is referred by Dr. Conlkin for treatment of Bilateral Foraminal Stenosis L>R LE symptoms. Physician: Vicente Keller Total Fluoroscopy time (seconds): 10 Total sedation minutes: 11 Complications: none Procedure in detail & Post-procedure care: FINDINGS Multilevel Central Spinal Stenosis with Nerve Root Compression DESCRIPTION OF PROCEDURE Fluoroscopically guided, contrast-controlled L3/4 translaminar epidural steroid injection. Following review of allergy and review of potential side effects and complications, including, but not necessarily limited to, infection, allergic reaction, local tissue breakdown, temporary as well as permanent nerve injury, paralysis, stroke and possible , the patient indicated that the patient understood and agreed to proceed. An informed consent document was signed by the patient, witnessed by a nurse, and placed in the patient's chart. Additionally, other treatment options including modalities, medications, and physical therapy were reviewed with the patient. After review of previous anaesthesic history and IV conscious sedation the patient was deemed safe to proceed with today?s procedure with IV conscious sedation as ASA class II designation. Safety time-out was performed to confirm patient ID, procedure to be performed and site of procedure. IV sedation was accomplished with a combination of 2mg of Versed was administered by the RN after DO order, titrated to patient comfort during the course of the procedure while the patient remained responsive to all verbal commands. In the prone position, following sterile prep and drape of the lumbar region, the L3/4 translaminar space was identified fluoroscopically. The skin was anesthetized via a 25-gauge, 1.5-inch needle with 1% lidocaine solution. At this point, a 22-gauge short bevel spinal needle was atraumatically introduced and advanced under fluoroscopic guidance into the region of the L3/4 translaminar space. Depth was confirmed on lateral view. Radiological data, including multiple fluoroscopic views of the lumbar spine, reveal a spinal needle at the L3/4 translaminar space. Lateral views then show placement of the needle in the epidural space. Subsequent views show contrast material flowing superiorly and inferiorly in the epidural space. No vascular or intrathecal uptake is observed. At this point, using loss of resistance technique with saline and air, the epidural space was entered. This was confirmed following negative aspiration with injection of approximately 1.5 cc of Isovue 200, showing excellent epidural flow without vascular or intrathecal uptake. At this point, 1cc of 1% lidocaine solution combined with 2cc or 10mg of dexamethasone and 6mg of betamethasone was injected without incident. The patient tolerated the procedure well without signs or symptoms of complications prior to transfer to the recovery area continued monitoring without incident. The patient was then transferred to the recovery area where they were observed for an appropriate period of time after the injection. The patient reported a VAS score of 6 prior to the procedure and a post- procedure VAS of 0. POST OP INSTRUCTIONS The patient was provided a Pain Log to continue to record their response to the target-specific procedure prior to follow-up visit with their referring physician. Additionally, specific post-injection care instructions and a contact number to our office were provided if concerns arise regarding possible complications associated with the procedure are suspected.
== END 2023-07-26 14:57 | disposition home or self-care (01) ==
LOC: RAD 13:14
PROVIDERS: PCP Family Medicine; Referring Provider Physical Medicine & Rehabilitation; Visit Provider Physical Medicine & Rehabilitation
DX: M54.16 Radiculopathy, lumbar region (principal); M41.9 Scoliosis, unspecified; M48.061 Spinal stenosis, lumbar region without neurogenic claudication
CPT/HCPCS: 62323; 99152; J0702; J1100; J2250; J3490

== ENCOUNTER → 2024-01-30 09:44 | Outpatient (CLI) | payer MEDICARE, SELFPAY ==
--- NOTE | 2024-01-30 09:47 | DI.RAD.S_ITS ---
PROCEDURE: XR KNEE RT 3V INDICATIONS: knee djd TECHNIQUE: 3 views of the knee were acquired. COMPARISON: [facility], CR, XR KNEE ARTHRITIC SERIES RT, 04/21/2017, 10:31. [facility], CR, XR KNEE LT 3V, 01/30/2024, 9:57. FINDINGS: Bones: No fractures or dislocations. No suspicious bony lesions. Tricompartmental osteophytosis. Mild joint space narrowing at the patellofemoral compartment. Soft tissues: Small joint effusion. No suspicious soft tissue calcifications. Chondrocalcinosis. IMPRESSION: Mild right knee DJD. Chondrocalcinosis. Dictated by: Kelvin Brown M.D. on 01/30/2024 at 11:53 Approved by: Kelvin Brown M.D. on 01/30/2024 at 11:54
--- NOTE | 2024-01-30 09:47 | DI.RAD.S_ITS ---
PROCEDURE: XR KNEE LT 3V INDICATIONS: knee djd TECHNIQUE: 3 views of the knee were acquired. COMPARISON: [facility], CR, XR KNEE RT 3V, 01/30/2024, 9:57. FINDINGS: Bones: No fractures or dislocations. No suspicious bony lesions. Tricompartmental osteophytosis. Mild joint space loss at the patellofemoral compartment. Soft tissues: Small joint effusion. No suspicious soft tissue calcifications. IMPRESSION: Mild left knee DJD. Dictated by: Kelvin Brown M.D. on 01/30/2024 at 11:51 Approved by: Kelvin Brown M.D. on 01/30/2024 at 11:53
== END ==
PROVIDERS: PCP Family Medicine; Referring Provider Physical Medicine & Rehabilitation; Visit Provider Physical Medicine & Rehabilitation
DX: M17.0 Bilateral primary osteoarthritis of knee (principal); M11.261 Other chondrocalcinosis, right knee
CPT/HCPCS: 73562

== ENCOUNTER → 2024-05-17 09:04 | Outpatient (CLI) | payer MEDICARE, SELFPAY ==
--- NOTE | 2024-05-17 09:30 | DI.MRI.S_ITS ---
PROCEDURE: MR KNEE LT WO CON INDICATIONS: left knee effusion TECHNIQUE: Noncontrast sagittal PD fast spin echo and T2 fast spin echo with fat saturation, sagittal 3-D FLASH with fat saturation; coronal T1 spin echo and PD fast spin echo with fat saturation, and axial PD fast spin echo with fat saturation through the knee. COMPARISON: [facility], CR, XR KNEE LT 3V, 01/30/2024, 9:57. FINDINGS: Image quality: Diagnostic Menisci: Medial: Oblique tear of the posterior horn of the medial meniscus. Lateral: Primarily horizontal complex tear of the lateral meniscus, with a small flipped fragment from the free edge anteriorly. (05/31) Cruciate ligaments: Mild signal abnormality of the PCL. The ACL is intact. Medial structures: MCL: Intact Pes anserine tendons: Mild bursitis Semimembranosus: Mild insertional tendinopathy Lateral structures: LCL: Mild edema at the proximal aspect Biceps femoris: Intact IT band: Intact Popliteus tendon: Mild insertional tendinopathy and tenosynovitis Anterior structures: Extensor mechanism: Intact Fat pads: Moderate prepatellar and mild Hoffa's fat pad edema Medial retinaculum: Intact. Trochlea: Slightly shallow with lateral patellar tilt. Bone and joint: Bones: No fracture, dislocation, or suspicious edema Cartilage: There is full surface cartilage loss at the median ridge of the patella also involving the medial facet. There is subchondral edema. Focal fissuring with subchondral edema also seen in the trochlear sulcus. Partial thickness loss is seen at multiple areas of the medial and lateral compartments. Joint space: Moderate joint effusion Yao's cyst: None Soft tissues: No significant vascular or other soft tissue pathology. IMPRESSION: Medial and lateral meniscal tears as described above. Possible sprain or prior injury of the PCL. Mild sprain of the proximal LCL. Moderate degenerative changes, most significant in the patellofemoral compartment, with areas of full-thickness surface cartilage loss and subchondral edema. Moderate joint effusion. Moderate prepatellar and mild Hoffa's fat pad edema. Lateral patellar tilt and possibly shallow trochlea, sometimes seen with maltracking. Suspected tendinopathy of the semimembranosus and popliteus tendons. Dictated by: Alex Dwyer M.D. on 05/18/2024 at 9:14 Approved by: Alex Dwyer M.D. on 05/18/2024 at 9:19
== END ==
PROVIDERS: PCP Family Medicine; Referring Provider Physical Medicine & Rehabilitation; Visit Provider Physical Medicine & Rehabilitation
DX: S83.272A Complex tear of lateral meniscus, current injury, left knee, initial encounter (principal); S83.242A Other tear of medial meniscus, current injury, left knee, initial encounter; S83.522A Sprain of posterior cruciate ligament of left knee, initial encounter; M25.462 Effusion, left knee; M17.9 Osteoarthritis of knee, unspecified
CPT/HCPCS: 73721

== ENCOUNTER → 2025-03-05 09:35 | Outpatient (CLI) | payer MEDICARE, SELFPAY ==
--- NOTE | 2025-03-05 15:42 | ST.SWALLOW ---
Visit Care Team Role Provider Type Real Conklin MD Primary Care Provider Non-Staff Specialty: Family Practice Address: [address] [place] [address], [id number] Email: Bernardo Bonner MD Attending Provider Physician Referring Provider Specialty: Ear, Nose, Throat Address: [address] [place] [address], [id number] Email: [email or web address] Modified Barium Swallow Study LINE MECHANIC Modified Barium Swallow Study Start: 03/05/25 14:10 Freq: Status: Active Protocol: Document 03/05/25 14:10 LNK (Rec: 03/05/25 14:51 LNK Desktop) Modified Barium Swallow Study Total Time Visit Start Time 10:00 Visit Stop Time 10:30 Total Visit Minutes 30 Referral Referring Physician Bernardo Bonner MD,ent Reason for Referral Dysphagia; fglobus sensation Setting Setting Outpatient Care Patient Information Identification Type Name,Date of Patient History Pt was seen for a Modified Barium Swallow Study with c/o difficulty swallowing foods, liquids and medications over the past 2-3 years. Pt was referred by Dr. Bonner, ENT. Pt stated that he experienced burning in is mouth and that his dentist wondered about acid vapor in his throat ( laryngopharyngeal reflux). Pt reported a PMH that includes GERD for which he takes omneprozol and an OTC antacid as needed,, Pt described his swallow as feeling as though foods, medications and liquids feel stuck (points to sternal notch ). He will try to cough the stuck food out. This is sometimes effective in reducing the gobus sensation. Foods that are problematic include chicken breast, steak and other dense meats. Sometimes breads feel stuck. Subjective Observations Pt was seated in the fluoroscopy chair with directions and procedures described for him. He indicated he understood and agreed to proceed. Patient Positioning Position View Lat-A/P Imaging Lateral View Textures Administered Trials Presented Thin Liquid via Spoon (IDDSI 0 ),Thin Liquid via Cup (IDDSI 0 ),Extremely Thick Liquid via Spoon (IDDSI 4),Regular (IDDSI 7) Barium Tablet Yes The IDDSI Framework Protocol: IDDSI.1 Oral Impairment Source: The Modified Barium Swallow Impairment Profile (MBSImP??) Lip Closure Interlabial escape; no progression to anterior lip Tongue Control During Bolus Hold Cohesive bolus between tongue to palatal seal Bolus Preparation/Mastication Timely & efficient chewing & mashing Bolus Transport/Lingual Motion Brisk tongue motion Oral Residue Residue collection on oral structures Location Tongue Initiation of Pharyngeal Swallow Bolus head in valleculae Additional Oral Impairment Observations Oral phase of swallow WNL *OME and DKS were observed to be WNL. *Dentition natural and in good hygiene *Mastication observed with rotary chew pattern. *Good bolus formation, control and AP transition. *Velopharyngeal closure was WNL. Pharyngeal Impairment Source: The Modified Barium Swallow Impairment Profile (MBSImP??) Soft Palate Elevation No bolus between soft palate & pharyngeal wall Laryngeal Elevation Comp.sup.move.thyroid cart.w/ comp.approx.arytenoids to epiglot petiole Anterior Hyoid Excursion Partial anterior movement Epiglottic Movement Complete inversion Laryngeal Vestibular Closure Complete; no air/contrast in laryngeal vestibule Pharyngeal Stripping Wave Present - complete Pharyngoesophageal Segment Opening Partial distention/partial duration; partial obstruction of flow Tongue Base Retraction No contrast between tongue base & posterior pharyngeal wall Pharyngeal Residue Collection of residue within/ on pharyngeal structures Location Diffuse (>3 areas) Additional Pharyngeal Impairment *Flash penetration x2 noted ( Observations WNL given pt's age) *Reduced extension and duration of the UES, requiring 3+ swallows/bolus to pass into esophagus *Narrowing of the upper esophagus at the C5-C6 level that restricted/impeded flow of solid and semisolid boluses *Vallecular pooling of semi solid and solid boluses A/P View Textures Administered Trials Presented Thin Liquid via Spoon (IDDSI 0 ) The IDDSI Framework Protocol: IDDSI.1 A/P View Observations Pharyngeal Contraction Complete Vocal Fold Function Good Esophageal Function Stasis,Narrowing Additional A-P Observations AP trials: thin barium and 13 mm calibrated barium tablet *Vallecular pooling observed in AP view *Residual contrast from sternum to LES - partially cleared with water wash *Tablet stopped at valeculla and then mid sternum requiring several swallows of water to clear tablet to stomach Clinical Impressions Dysphagia Type Esophageal Findings *Pt appeared to demonstrate esophageal dysphagia with reduced UES extension and duration of opening. *Esophageal stasis observed *Esophageal narrowing that restricted/impeded tablet, solid and semi solid bolus flow near C5-C6 proximal to the UES *Several swallows needed to clear semi solid and solid boluses to the stomach With pt's history GERD as well as DDS suspicion of LPR, GI referral recommended Rehabilitation Potential Fair Patient Appropriate for Therapy No Recommendations Diet Comments No change in diet recommended Treatment Plan Recommended Referrals GI Consult
== END ==
PROVIDERS: PCP Family Medicine; Referring Provider Otolaryngology; Visit Provider Otolaryngology
DX: R13.19 Other dysphagia (principal); K21.9 Gastro-esophageal reflux disease without esophagitis
CPT/HCPCS: 74230; 92611